=== PATIENT | female | born 1950 | race Two or more races ===

== ENCOUNTER 2017-09-29 11:55 | Emergency (ER) | payer MEDICARE ==
--- OUTSIDE RECORDS SUMMARY | 2017-09-29 12:15 | XMS REPORT ---
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 Active Onset: 12/19/2013 Sprain of knee and leg Aniket Miles M.D. Active Onset: 10/23/2012 Epistaxis Aniket Miles M.D. Active Onset: 08/18/2012 Benign essential hypertension Aniket Miles M.D. Active Onset: 10/11/2011 Epigastric pain Aniket Miles M.D. Active Family History Date Family Member(s) Problem(s) Comments Father due to Diabetes () Father due to NM () - age 63 Mother Hypertension Mother Hyperlipidemia Mother Osteoarthritis Social History Description No Information Available Allergies, Adverse Reactions, Alerts Date Description Reaction Status Severity Comments 01/27/2011 NKDA active Medications Medication Date Status Form Strength Qnty SIG Indications Ordering Provider Hydrochlorothiazi 08/18 Active Tablets 12.5mg 30tab take 1 Aniket giron /2013 s tablet by Ginger, mouth once M.D. daily Celebrex 07/02 Active Capsules 200mg 30cap 1 by mouth s every day DARELL Hudson Calcium + D Active Tablets 600-200mg 1 by mouth Unknown /0000 -Unit every day Amoxicillin 07/05 Hx Tablets 500mg 20tab 1 by mouth Aniket Lacy s twice a Ginger, - day M.D. 09/29 Prednisone 07/01 Hx Tablets 10mg 12tab 3 tabs by M54.31 s mouth Casa, - every day Afnp-C 07/07 x 2; tabs by mouth x 2, then 1 tab every day x 2 Physical Therapy 07/01 Hx treatment M54.31 and Casa, - evaluation Afnp-C 07/05 of sciatic pain Vitamin D-3 10/12 Hx Capsules 1000Unit 2 by mouth Aniket House every day Marjorie Miles.Merrick 07/01 Vagifem 04/09 Hx Tablets 10mcg 25tab insert tab Aniket House /2014 s twice Ginger, - weekly M.D. 07/05 Bactroban Nasal 12/10 Hx Ointment 2% apply to Aniket House /2013 the Ginger - affected M.D. 12/10 area bid for 5 days Meloxicam 12/10 Hx Tablets 15mg 30tab 1 po qd 844.9 Jaquan Ford, /2013 s M.D. - 02/11 Bactroban 10/23 Hx Ointment 2% 1Tube apply to Aniket House affected Ginger - area bid M.D. 12/10 Prevacid 10/12 Hx Capsules 30mg 30cap 1 po qd Aniket House Marjorie Bear M.D. 08/18 Protonix 10/10 Hx Packet 40mg 20uni 1 po qd Aniket House Marjorie Ponce M.D. 10/11 Aziza D 24H 12/17 Hx 10uni 1 po qd Aniket House /2008 Marjorie Ponce M.D. 07/29 Amoxicillin 12/17 Hx Capsules 500mg 14cap bid x 10 Aniket House s days Marjorie Miles M.D. 07/29 Aziza 12/18 Hx Tablets 180mg 30tab 1 PO qd Aniket House s Marjorie Miles M.D. 12/14 Calcium-Vitamin D 12/10 Hx Tablets 500-125 90tab [facility] Aziza D 24H 12/10 Hx 14uni 1 po qd Aniket House /2007 ts Marjorie Miles M.D. 12/14 Indocin 02/11 Hx 25mg 50uni 1 po tid Aniket House ts with Marjorie Baltazar M.D. 07/03 Naprosyn 05/17 Hx Tabs 500mg 20tab 1 bid with Aniket House s Marjorie Baltazar M.D. 07/03 Immunizations CPT Code Status Date Vaccine Lot # [id number] Given 01/10/2007 Tetanus And Diptheria Adult Preservative Free [id number] >7Yrs Vital Signs Date Vital Result Comment 09/29/2017 BP Systolic 120 mmHg BP Diastolic 60 mmHg Heart Rate 80 /min Body Temperature 98.2 F Respiratory Rate 16 /min Height 60.25 inches 5'0.25" Weight 153.00 lb BMI (Body Mass Index) 29.6 kg/m2 07/05/2017 BP Systolic 128 mmHg BP Diastolic 84 mmHg Heart Rate 77 /min Body Temperature 98.8 F Respiratory Rate 16 /min O2 % BldC Oximetry 96 % Height 60.25 inches 5'0.25" Weight 156.00 lb BMI (Body Mass Index) 30.2 kg/m2 07/01/2016 BP Systolic 136 mmHg BP Diastolic 82 mmHg Heart Rate 66 /min Body Temperature 98.4 F Respiratory Rate 16 /min Height 60.25 inches 5'0.25" Weight 155.25 lb BMI (Body Mass Index) 30.1 kg/m2 12/17/2015 BP Systolic 122 mmHg BP Diastolic 74 mmHg Heart Rate 64 /min Body Temperature 98.1 F Respiratory Rate 16 /min Height 60.25 inches 5'0.25" Weight 159.25 lb BMI (Body Mass Index) 30.8 kg/m2 10/13/2015 BP Systolic 126 mmHg BP Diastolic 80 mmHg Heart Rate 62 /min Body Temperature 98.1 F Respiratory Rate 18 /min Height 60.25 inches 5'0.25" Weight 157.00 lb BMI (Body Mass Index) 30.4 kg/m2 04/09/2015 BP Systolic 124 mmHg BP Diastolic 74 mmHg Heart Rate 66 /min Body Temperature 97.2 F Respiratory Rate 16 /min Height 60.25 inches 5'0.25" Weight 158.00 lb BMI (Body Mass Index) 30.6 kg/m2 12/19/2013 BP Systolic 124 mmHg BP Diastolic 80 mmHg Heart Rate 76 /min Body Temperature 98.2 F Respiratory Rate 18 /min Height 60.25 inches 5'0.25" Weight 162.00 lb BMI (Body Mass Index) 31.4 kg/m2 12/10/2013 BP Systolic 130 mmHg BP Diastolic 74 mmHg Heart Rate 72 /min Body Temperature 98.5 F Respiratory Rate 18 /min Height 60.25 inches 5'0.25" Weight 162.00 lb BMI (Body Mass Index) 31.4 kg/m2 10/23/2012 BP Systolic 128 mmHg BP Diastolic 88 mmHg Heart Rate 78 /min Body Temperature 98.3 F Height 60.25 inches 5'0.25" Weight 159.00 lb BMI (Body Mass Index) 30.8 kg/m2 09/08/2012 BP Systolic 110 mmHg BP Diastolic 62 mmHg Heart Rate 84 /min Body Temperature 97.6 F Height 60.25 inches 5'0.25" Weight 161.38 lb BMI (Body Mass Index) 31.3 kg/m2 08/18/2012 BP Systolic 120 mmHg BP Diastolic 82 mmHg Heart Rate 72 /min Body Temperature 98.8 F Respiratory Rate 16 /min Height 60.25 inches 5'0.25" Weight 156.00 lb BMI (Body Mass Index) 30.2 kg/m2 10/11/2011 BP Systolic 124 mmHg BP Diastolic 80 mmHg Heart Rate 72 /min Body Temperature 99.2 F Height 60.25 inches 5'0.25" Weight 154.00 lb BMI (Body Mass Index) 29.8 kg/m2 01/27/2011 BP Systolic 120 mmHg BP Diastolic 74 mmHg Heart Rate 80 /min Body Temperature 98.6 F Respiratory Rate 16 /min Height 60.25 inches 5'0.25" Weight 152.00 lb BMI (Body Mass Index) 29.4 kg/m2 07/29/2010 BP Systolic 140 mmHg BP Diastolic 80 mmHg Heart Rate 76 /min Body Temperature 97.5 F Respiratory Rate 20 /min Height 60.25 inches 5'0.25" Weight 152.00 lb BMI (Body Mass Index) 29.4 kg/m2 05/12/2009 Body Temperature 98.6 F 05/12/2009 BP Systolic 128 mmHg BP Diastolic 80 mmHg Heart Rate 78 /min Weight 153.00 lb 12/17/2008 BP Systolic 132 mmHg BP Diastolic 80 mmHg Heart Rate 68 /min Body Temperature 99.7 F Height 60.75 inches 5'0.75" Weight 153.00 lb BMI (Body Mass Index) 29.1 kg/m2 12/14/2008 BP Systolic 128 mmHg BP Diastolic 80 mmHg Heart Rate 68 /min Body Temperature 97.5 F Height 60.75 inches 5'0.75" Weight 153.00 lb BMI (Body Mass Index) 29.1 kg/m2 12/11/2007 BP Systolic 112 mmHg BP Diastolic 634 mmHg Heart Rate 64 /min Height 60.75 inches 5'0.75" Weight 146.00 lb BMI (Body Mass Index) 27.8 kg/m2 01/13/2007 BP Systolic 122 mmHg BP Diastolic 64 mmHg Heart Rate 78 /min Body Temperature 99.6 F Height 60.75 inches 5'0.75" Weight 140.00 lb BMI (Body Mass Index) 26.7 kg/m2 01/10/2007 BP Systolic 136 mmHg BP Diastolic 72 mmHg Heart Rate 72 /min Body Temperature 98.5 F Height 60.75 inches 5'0.75" Weight 140.00 lb BMI (Body Mass Index) 26.7 kg/m2 07/02/2005 BP Systolic 140 mmHg BP Diastolic 86 mmHg Heart Rate 72 /min Height 61 inches 5'1" Weight 150.00 lb BMI (Body Mass Index) 28.3 kg/m2 02/07/2004 BP Systolic 120 mmHg BP Diastolic 80 mmHg Heart Rate 84 /min Height 61 inches 5'1" Weight 140.00 lb BMI (Body Mass Index) 26.4 kg/m2 04/15/2003 BP Systolic 124 mmHg BP Diastolic 80 mmHg Heart Rate 60 /min Height 61 inches 5'1" Weight 151.00 lb BMI (Body Mass Index) 28.5 kg/m2 01/29/2003 BP Systolic 112 mmHg BP Diastolic 80 mmHg Height 61 inches 5'1" Weight 150.00 lb BMI (Body Mass Index) 28.3 kg/m2 06/08/2002 BP Systolic 140 mmHg BP Diastolic 80 mmHg Heart Rate 80 /min Body Temperature 97.6 F Height 61 inches 5'1" Weight 149.00 lb BMI (Body Mass Index) 28.2 kg/m2 10/03/2001 BP Systolic 120 mmHg BP Diastolic 74 mmHg Heart Rate 72 /min Body Temperature 97.8 F Height 61 inches 5'1" Weight 149.00 lb BMI (Body Mass Index) 28.2 kg/m2 03/27/2001 BP Systolic 126 mmHg BP Diastolic 76 mmHg Heart Rate 84 /min Height 61 inches 5'1" Weight 150.00 lb BMI (Body Mass Index) 28.3 kg/m2 03/23/2000 BP Systolic 140 mmHg BP Diastolic 78 mmHg Heart Rate 76 /min Height 61 inches 5'1" Weight 148.00 lb BMI (Body Mass Index) 28.0 kg/m2 12/03/1998 BP Systolic 122 mmHg BP Diastolic 70 mmHg Body Temperature 98.4 F Height 61 inches 5'1" Weight 144.50 lb 05/02/1998 BP Systolic 128 mmHg BP Diastolic 80 mmHg Heart Rate 72 /min Body Temperature 97.5 F Height 61 inches 5'1" Weight 142.00 lb 03/08/1997 BP Systolic 102 mmHg BP Diastolic 70 mmHg Body Temperature 100.0 F Weight 138.50 lb 138 lbs. 8 ozs. Up 2.5 LBS Results Test Date Test Result H/L Range Note Comprehensive Metabolic Prof 05/20/2017 Sodium 145 mEq/L 134-149 Potassium 4.4 mEq/L 3.6-5.5 Chloride 106 mEq/L 94-112 Carbon Dioxide 27 mEq/L 21-32 Glucose 110 mg/dL High 70-105 BUN 18 mg/dL 6-26 Creatinine 0.6 mg/dL 0.6-1.4 BUN/Creat Ratio 30.0 CALC 8.0-36.0 Calcium 9.6 mg/dL 8.6-10.2 Total Protein 6.7 g/dL 6.4-8.3 Albumin 4.3 g/dL 3.8-5.5 Globulin 2.4 g/dL 2.0-4.8 A/G Ratio 1.8 CALC 0.6-2.3 Alk. Phosphatase 74 U/L 30-110 Alt (SGPT) 12 U/L 7-35 Ast (Sgot) 14 U/L 5-34 Total Bilirubin 0.5 mg/dL 0.2-1.3 GFR Non- >60 ml/min/1.73m^ >=60 GFR >60 ml/min/1.73m^ >=60 Complete Blood Count 05/20/2017 WBC 5.9 x10^3/UL 3.6-9.6 RBC 5.02 x10^6/UL 3.90-5.70 HGB 13.8 g/dL 12.1-17.2 HCT 41 % 36-50 MCV 82.0 fL Low 82.2-97.4 MCH 27.4 pg Low 27.6-33.3 MCHC 33.5 g/dL 33.0-35.5 RDW 13.9 % High 11.6-13.7 PLT 204 x10^3/UL 150-400 MPV 9.0 fL 7.4-10.4 Gran # 3.9 x10^3/UL 1.5-7.2 Lymph# 1.8 x10^3/UL 0.7-4.9 Teller# 0.2 x10^3/UL 0.1-0.9 Gran % 64.3 % 42.2-75.2 Lymph % 32.1 % 20.5-51.1 Teller% 3.6 % 1.7-9.3 Laboratory test finding 05/20/2017 TSH 2.41 mIU/L 0.50-6.00 Lipid Profile 05/20/2017 Cholesterol 263 mg/dL High 120-200 Triglycerides 170 mg/dL 30-200 HDL Cholesterol 76 mg/dL 30-85 LDL (Calculated) 153 CALC High 0-129 VLDL Cholesterol 34 mg/dL 0-50 HDL Risk Factor 3.5 CALC 0.0-4.4 Ua - Micro (Fma) 07/01/2016 Appearance clear Color yellow Glucose, Urine (Fma/CMC/CTX) neg Bilirubin neg Ketones neg SP Grav <=1.005 Blood trace-lysed PH 5.5 Protein neg Urobil 0.2 Nitrite neg Leukocytes (Fma/CMC/Centrex) neg RBC 0-1 Epith rare /Lpf Lipid Profile 10/13/2015 Cholesterol 287 mg/dL High 120-200 Triglycerides 204 mg/dL High 30-200 HDL Cholesterol 73 mg/dL 30-85 LDL (Calculated) 173 CALC High 0-129 VLDL Cholesterol 41 mg/dL 0-50 HDL Risk Factor 3.9 CALC 0.0-4.4 Complete Blood Count 04/09/2015 WBC 5.2 x10^3/UL 3.6-9.6 RBC 5.00 x10^6/UL 3.90-5.70 HGB 13.9 g/dL 12.1-17.2 HCT 42 % 36-50 MCV 86.0 fL 82.2-97.4 MCH 27.7 pg 27.6-33.3 MCHC 33.2 g/dL 33.0-35.5 RDW 14.0 % High 11.6-13.7 PLT 174 x10^3/UL 150-400 MPV 7.8 fL 7.4-10.4 Gran # 2.9 x10^3/UL 1.5-7.2 Lymph# 3.4 x10^3/UL 0.7-4.9 Teller# 0.5 x10^3/UL 0.1-0.9 Gran % 48.0 % 42.2-75.2 Lymph % 45.1 % 20.5-51.1 Teller% 6.9 % 1.7-9.3 Ua - Non Micro (Fma) 04/09/2015 Appearance CLEAR Color YELLOW Glucose, Urine (Fma/CMC/CTX) NEG Bilirubin NEG Ketones NEG SP Grav 1.010 Blood NEG PH 5.5 Protein NEG Urobil 0.2 Nitrite NEG Leukocytes ([facility]) NEG Lipid Profile 04/09/2015 Cholesterol 287 mg/dL High 120-200 Triglycerides 112 mg/dL 30-200 HDL Cholesterol 81 mg/dL 30-85 LDL (Calculated) 184 CALC High 0-129 VLDL Cholesterol 22 mg/dL 0-50 HDL Risk Factor 3.5 CALC 0.0-4.4 Comprehensive Metabolic Prof 04/09/2015 Sodium 143 mEq/L 134-149 Potassium 4.4 mEq/L 3.6-5.5 Chloride 103 mEq/L 94-112 Carbon Dioxide 27 mEq/L 21-32 Glucose 123 mg/dL High 70-105 1 BUN 23 mg/dL 6-26 Creatinine 0.7 mg/dL 0.6-1.4 BUN/Creat Ratio 32.9 CALC 8.0-36.0 Calcium 9.7 mg/dL 8.6-10.2 Total Protein 7.2 g/dL 6.4-8.3 Albumin 4.4 g/dL 3.8-5.5 Globulin 2.8 g/dL 2.0-4.8 A/G Ratio 1.6 CALC 0.6-2.3 Alk. Phosphatase 68 U/L 30-110 Alt (SGPT) 14 U/L 7-35 Ast (Sgot) 18 U/L 5-34 Total Bilirubin 0.9 mg/dL 0.2-1.3 GFR Non- >60 ml/min/1.73m^ >=60 GFR >60 ml/min/1.73m^ >=60 Comprehensive Metabolic Prof 12/27/2013 Sodium 142 mEq/L 134-149 Potassium 4.4 mEq/L 3.6-5.5 Chloride 105 mEq/L 94-112 Carbon Dioxide 25 mEq/L 21-32 Glucose 115 mg/dL High 70-105 2 BUN 22 mg/dL 6-26 Creatinine 0.8 mg/dL 0.6-1.4 BUN/Creat Ratio 27.5 CALC 8.0-36.0 Calcium 9.6 mg/dL 8.6-10.2 Total Protein 7.3 g/dL 6.3-8.1 Albumin 4.3 g/dL 3.8-5.5 Globulin 3.0 g/dL 2.0-4.8 A/G Ratio 1.4 CALC 0.6-2.3 Alk. Phosphatase 74 U/L 30-110 Alt (SGPT) 18 U/L 7-35 Ast (Sgot) 15 U/L 5-34 Total Bilirubin 0.9 mg/dL 0.2-1.3 Lipid Profile 12/27/2013 Cholesterol 278 mg/dL High 120-200 3 Triglycerides 234 mg/dL High 30-200 HDL Cholesterol 68 mg/dL 30-85 LDL (Calculated) 163 CALC High 0-129 VLDL Cholesterol 47 mg/dL 0-50 HDL Risk Factor 4.2 CALC 0.0-4.4 Lipid Profile 08/18/2012 Cholesterol 242 mg/dL High 120-200 HDL 70 mg/dL 30-85 Triglycerides 127 mg/dL 30-200 HDL Risk Factor 3.4 CALC 0.0-4.4 LDL (Calculated) 146 CALC High 0-129 VLDL (Calculated) 25 mg/dL 0-50 Total Protein 24HR Urine 08/14/2012 Urine Random Total Protein 8 mg/dL Urine Total Protein/24HR 90 mg/24Hr 0-165 Basic Metabolic Panel 08/14/2012 Sodium 142 mmol/L 133-145 Potassium 4.4 mmol/L 3.5-5.0 Chloride 106 mmol/L 101-111 Co2 Carbon Dioxide 28.0 mmol/L 22-32 Anion Gap 8.0 mmol/L 2-11 Glucose 116 mg/dL High 70-100 Blood Urea Nitrogen 10 mg/dL 6-24 Creatinine 0.80 mg/dL 0.50-1.40 BUN/Creatinine Ratio 12.5 8-20 Calcium 9.9 mg/dL 8.1-9.9 Egfr Non- 73.2 >60 Egfr 94.1 >60 4 Creatinine Clearance 08/14/2012 Urine Random Creatinine 91.8 mg/dL Creatinine 0.8 mg/dL 0.5-1.4 Creatinine Clearance 90 mL/min 80-125 Urine Collection Time 24 Urine Total Volume 1125 mL Laboratory test finding 07/29/2011 PTT (Aptt) 28.0 25.15-38.53 Protime 07/29/2011 Inr 0.88 0.88-1.13 5 Protime 10.3 SEC 10.3-13.5 6 CBC Auto Diff 07/29/2011 White Blood Count 5.9 CUMM 4.8-10.8 Red Cell Count 5.18 CUMM 4.2-5.4 Hemoglobin 13.8 g/dL 12.0-16.0 Hematocrit 40 % 35-47 Mean Corpuscular Volume 78 um3 Low 79-97 Mean Corpuscular Hemoglob 27 pg 27-31 Mean Corpuscular HGB Cone 34 g/dL 32-36 Redcell Distribution WDTH 17 % High 10.5-15 Platelet Count 213 CUMM 150-450 Mean Platelet Volume 10.9 um3 High 7.4-10.4 Gran % 64.4 % 38-83 Lymph % 25.9 % 25-47 Mononuclear % 5.5 % 1-9 Eosinophil % 3.8 % 0-6 Basophil % 0.4 % 0-2 Abs Lymphs 1.5 1.0-4.8 Abs Mononuclear 0.3 0-0.8 Absolute Neutrophil Count 3.8 1.5-7.7 Abs Eosinophils 0.2 0-0.6 Abs Basophils 0 0-0.2 Laboratory test finding 07/30/2010 TSH 1.69 mIU/L 0.50-6.00 Comprehensive Metabolic Prof 07/30/2010 Albumin 4.5 g/dL 3.8-5.5 Alk. Phos. 77 U/L 30-110 Alt (SGPT) 12 U/L 7-35 Ast (Sgot) 16 U/L 5-34 BUN 22 mg/dL 6-26 Calcium 10.1 mg/dL 8.6-10.2 Chloride 105 mEq/L 94-112 Creatinine 0.7 mg/dL 0.6-1.4 Carbon Dioxide 28 mEq/L 21-32 Glucose 107 mg/dL High 70-105 7 Sodium 143 mEq/L 134-149 Total Bilirubin 1.1 mg/dL 0.2-1.3 Total Protein 6.9 g/dL 6.3-8.1 Potassium 4.8 mEq/L 3.6-5.5 Globulin 2.4 g/dL 2.0-4.8 A/G Ratio 1.9 Calc 0.6-2.2 BUN/Creat Ratio 29.9 Calc 8.0-36.0 Laboratory test finding 07/30/2010 Vitamin D, 25 Oh 27.4 ng/mL Low 32.0- 100.0 8 Lipid Profile 07/30/2010 Cholesterol 281 mg/dL High 120-200 9 HDL 77 mg/dL 30-85 Triglycerides 113 mg/dL 30-200 HDL Risk Factor 3.7 CALC Low 4.2-7.0 LDL (Calculated) 181 CALC High 0-129 VLDL (Calculated) 23 mg/dL 0-50 CBC (Fma) 07/30/2010 WBC 5.0 3.6-9.6 RBC 5.09 3.90-5.70 Hemoglobin (Fma/CMC/CTX) 14.4 g/dL 12.1 - 17.2 Hematocrit (Fma/CMC/CTX) 42.2 % 36.1 - 50.3 Platelets 179 10^3/ul 150-400 Lymph% 24.0 20.5-51.1 Mixed% 7.6 Neutrophils % 68.4 Mean Corpuscular Vol 83 82.2-97.4 Mean Corpuscular Hemoglobin 28.2 27.6-33.3 Mean Corpuscular Hemo Concen 34.0 32.0-36.0 RDW 12.2 11.6-13.7 Mean Platelet Volume 9.2 6.5-11.0 Ua - Non Micro (Fma) 07/29/2010 Appearance CLEAR Color YELLOW Glucose NEG Bilirubin NEG Ketones NEG SP Grav 1.010 Blood NEG PH 6.5 Protein NEG Urobil 0.2 Nitrite NEG Leukocytes (Fma/[facility]) NEG Laboratory test finding 12/14/2008 Quickstrep NEG Negative Throat - Beta Strep Fma negative Comprehensive Metabolic Prof 12/18/2007 Albumin 4.2 g/dL 3.8-5.5 10 Alk. Phos. 74 U/L 30-110 10 Alt (SGPT) 13 U/L 7-35 10 Ast (Sgot) 20 U/L 5-34 10 BUN 25 mg/dL 6-26 10 Calcium 9.3 mg/dL 8.6-10.2 10 Chloride 102 mEq/L 94-112 10 Creatinine 0.9 mg/dL 0.6-1.4 10 Carbon Dioxide 29 mEq/L 21-32 10 Glucose 96 mg/dL 70-105 10 Sodium 140 mEq/L 134-149 10 Total Bilirubin 0.7 mg/dL 0.2-1.3 10 Total Protein 6.8 g/dL 6.3-8.1 10 Potassium 4.0 mEq/L 3.6-5.5 10 Globulin 2.6 g/dL 2.0-4.8 10 A/G Ratio 1.6 Calc 0.6-2.2 10 BUN/Creat Ratio 29.1 Calc 8.0-36.0 10 Lipid Profile 12/18/2007 Cholesterol 253 mg/dL High 120-200 10 HDL 80 mg/dL 30-85 10 Triglycerides 91 mg/dL 30-200 10 HDL Risk Factor 3.2 CALC Low 4.2-7.0 10 LDL (Calculated) 155 CALC High 0-129 10 VLDL (Calculated) 18 mg/dL 0-50 10 Complete Blood Count 12/18/2007 WBC 5.2 x10^3/u 3.6-9.6 10 Gran# 3.5 x10^3/u 1.5-7.2 10 Gran% 68.0 % 42.2-75.2 10 HCT 42 % 36-50 10 HGB 13.9 g/dL 12.1-17.2 10 Lymph# 1.5 x10^3/u 0.7-4.9 10 Lymph% 28.9 % 20.5-51.1 10 MCH 27.9 pg 27.6-33.3 10 MCV 83.7 fL 82.2-97.4 10 MCHC 33.4 g/dL 33.0-35.5 10 Mo# 0.2 x10^3/u 0.1-0.9 10 Mo% 3.1 % 1.7-9.3 10 MPV 10.2 fL 7.4-10.4 10 PLT 190 x10^3/u 150-400 10 RBC 4.98 x10^6/u 3.90-5.70 10 RDW 13.0 % 11.6-13.7 10 Complete Blood Count 01/11/2007 WBC 7.3 x10\\S\\3/uL 3.6-9.6 10 Gran# 5.7 x10\\S\\3/uL 1.5-7.2 10 Gran% 77.9 % High 42.2-75.2 10 HCT 41 % 36-50 10 HGB 13.8 g/dL 12.1-17.2 10 Lymph# 1.4 x10\\S\\3/uL 0.7-4.9 10 Lymph% 18.7 % Low 20.5-51.1 10 MCH 28.8 pg 27.6-33.3 10 MCV 86.0 fL 82.2-97.4 10 MCHC 33.4 g/dL 33.0-35.5 10 Mo# 0.2 x10\\S\\3/uL 0.1-0.9 10 Mo% 3.4 % 1.7-9.3 10 MPV 9.7 fL 7.4-10.4 10 PLT 203 x10\\S\\3/uL 150-400 10 RBC 4.78 x10\\S\\6/uL 3.90-5.70 10 RDW 13.4 % 11.6-13.7 10 Comprehensive Metabolic Prof 01/11/2007 Albumin 4.0 g/dL 3.8-5.5 10 Alk. Phos. 104 U/L 30-110 10 Alt (SGPT) 12 U/L 7-35 10 Ast (Sgot) 18 U/L 5-34 10 BUN 15 mg/dL 6-26 10 Calcium 9.2 mg/dL 8.6-10.2 10 Chloride 106 mEq/L 94-112 10 Creatinine 0.9 mg/dL 0.6-1.4 10 Carbon Dioxide 31 mEq/L 21-32 10 Glucose 128 mg/dL High 70-105 10 Sodium 142 mEq/L 134-149 10 Total Bilirubin 1.0 mg/dL 0.2-1.3 10 Total Protein 6.9 g/dL 6.3-8.1 10 Potassium 4.0 mEq/L 3.6-5.5 10 Globulin 2.9 g/dL 2.0-4.8 10 A/G Ratio 1.4 Calc 0.6-2.2 10 BUN/Creat Ratio 17.9 Calc 8.0-36.0 10 Lipid Profile 01/11/2007 Cholesterol 290 mg/dL High 120-200 10 HDL 66 mg/dL 30-85 10 Triglycerides 105 mg/dL 30-200 10 HDL Risk Factor 4.4 CALC 4.2-7.0 10 LDL (Calculated) 203 CALC High 0-129 10 VLDL (Calculated) 21 mg/dL 0-50 10 Ua - Micro ([facility]) 01/10/2007 Appearance CLEAR Color LT YELLOW Glucose NEG Bilirubin NEG Ketones NEG SP Grav 1.010 Blood NEG PH 7.0 Protein NEG Urobil 0.2 Nitrite NEG Leukocytes (a/[facility]) TRACE Hyaline - /Lpf Granular - /Lpf WBC (a,[facility]) 3-5 RBC - Mucus - /Lpf Epith OCC /Lpf Bacteria TRACE /Hpf Amorphous - /Lpf Crystals, Fluid (a/[facility]/CTX) - Z#Comments - Laboratory test finding 09/28/2004 Comments CBC;ESR;BASIC;CRYSTAL; Hep2;Anti- CCP PT + PTT No Therpy/Unkn 06/11/2002 PTT 25.6 seconds 23.0 - 32.0 PT (No Therapy/Unknown) 10.1 seconds 9.5 - 12.3 Inr 0.9 11 Comp Metabolic (a) 06/11/2002 Albumin ([facility]) 4.7 3.8-5.5 Alkaline Phosphatase 83 U/L 36-117 Bilirubin, Total 0.7 mg/dL 0.2-1.3 BUN 13 7-26 Calcium 9.4 mg/dL 8.6-10.0 Creatinine 0.7 mg/dL 0.6-1.4 Glucose 112 mg/dL 70 - 118 Ast Sgot 17 U/L 5-40 Alt (SGPT) 13 10-40 Total Protein 7.4 g/dL 6.4-8.3 Sodium 145 134-149 Potassium 4.9 3.6-5.5 Chloride 104 mEq/L 94-112 Co2 30 21-32 Globulin 2.7 2.0-4.8 A/G Ratio (a/[facility]) 1.7 0.6-2.2 BUN/Creatinin Ratio 18.6 8.0-36 Lipid Profile ([facility]) 06/11/2002 Cholesterol 255 mg/dL High 140-200 Triglyceride 80 mg/dL 30-150 VLDL 16 0-50 LDL-Calculated 165 High 0-160 HDL-Chol 74 35-85 Laboratory test finding 06/11/2002 TSH 1.22 0.4-4.2 CBC Electronic ([facility]) 06/11/2002 WBC 6.0 3.6-9.6 Lymphocytes 27.1 % 20.5 - 51.1 Monocytes 4.9 % 1.7-9.3 Granulocytes 68.0 % 42.2 - 75.2 Lymphocytes 1.6 10^3/uL 0.7 - 4.9 Monocytes 0.3 10^3/uL 0.1 - 0.9 Granulocytes 4.1 10^3/uL 1.5 - 7.2 RBC 5.01 3.90-5.70 Hemoglobin 13.5 g/dL 12.1 - 17.2 Hematocrit 40.6 % 36.1 - 50.3 Mean Corpuscular Vol 81.1 Low 82.2-97.4 Mean Corpuscular Hemaglobin 27.0 Low 27.6-33.3 Mean Corpuscular Hemo Concen 33.3 33.0-34.8 RDW 13.6 11.6-13.7 Platelets 192 10^3/ul 150-400 Mean Platelet Volume 9.3 7.4-10.4 Lipid Profile ([facility]) 03/30/2001 Cholesterol 204 mg/dL High 140-200 Triglyceride 190 mg/dL High 30-150 VLDL 38 0-50 LDL-Calculated 101 0-160 HDL-Chol 65 35-85 Comp Metabolic ([facility]) 03/29/2000 Albumin 3.9 GM/DL 3.80 - 5.50 Alkaline Phosphatase 59 U/L 39-130 Bilirubin, Total 0.6 mg/dL 0.2-1.3 BUN 13 mg/dL 10-26 Calcium 8.3 mg/dL 7.4-9.2 Creatinine 0.7 mg/dL 0.6-1.4 Glucose 111 mg/dL 70 - 118 Ast Sgot 17 U/L 9-44 Alt (SGPT) 14 U/L 10-40 Total Protein 7.9 g/dL 6.3-8.1 Sodium 139 134-149 Potassium 5.2 mEq/L 3.6-5.5 Chloride 103 mEq/L 94-112 Co2 27 21-32 Globulin 4.0 2.0-4.8 Albumin / Globulin Ratio 1.0 0.6-2.2 BUN/Creatinin Ratio 18.6 8.0-36 Lipid Profile ([facility]) 03/29/2000 Cholesterol 242 mg/dL High 140-200 Triglyceride 115 mg/dL 30-150 HDL-Chol 61.4 mg/dL 30-70 VLDL 23 mg/dL 0-50 LDL-Calculated 158 0-160 CBC With Diff ([facility]) 03/29/2000 WBC 5.5 /Hpf 3.6 - 9.6 Lymphocytes 28.9 % 20.5 - 51.1 Monocytes 5.7 % 1.7 - 9.3 Granulocytes 65.4 % 42.2 - 75.2 Lymphocytes 1.6 10^3/uL 0.7 - 4.9 Monocytes 0.3 10^3/uL 0.1 - 0.9 Granulocytes 3.6 10^3/uL 1.5 - 7.2 RBC 4.42 /Hpf 3.90 - 5.70 Hemoglobin 11.4 g/dL Low 12.1 - 17.2 Hematocrit 34.4 % Low 36.1 - 50.3 Mean Corpuscular Vol 77.8 fl Low 82.2 - 97.4 Mean Corpuscular Hemaglobin 25.7 pg Low 27.6 - 33.3 Mean Corpuscular Hemo Concen 33.0 g/dL 33.0 - 34.8 RDW 15.5 % High 11.6 - 13.7 Platelets 164 10^3/ul 150-400 Mean Platelet Volume 11.0 fl High 7.4 - 10.4 Ua - Non Micro (a New) 03/23/2000 Appearance CLEAR YELLOW Glucose - Bilirubin - Ketones - SP Grav >=1.030 Blood LARGE PH 6.5 Protein - Urobil 1.0 Nitrite - Leukocytes - 1 NON-FASTING 2 RESULTS VERIFIED BY REPEAT ANALYSIS 3 RESULTS VERIFIED BY REPEAT ANALYSIS 4 Because ethnic data is not always readily available, this report includes an eGFR for both -Americans and non- Americans. The National Kidney Disease Education Program (NKDEP) does not endorse the use of the MDRD equation for patients that are not between the ages of 18 and 70, are , have extremes of body size, muscle mass, or nutritional status, or are non- or non-. According to the National Kidney Foundation, irrespective of diagnosis, the stage of the disease is based on the level of kidney function: Stage Description GFR(mL/min/1.73 m(2)) 1 Kidney damage with normal or decreased GFR 90 2 Kidney damage with mild decrease in GFR 60-89 3 Moderate decrease in GFR 30-59 4 Severe decrease in GFR 15-29 5 Kidney failure <15 (or dialysis) 5 Recommended INR for Patients on Oral Anticoagulants Prophylaxis 2.0 - 3.0 Treatment of thrombosis 2.0 - 3.0 Prevention of embolism 2.0 - 3.0 Prevention of embolism from prosthetic heart valves 2.5 - 3.5 6 DIAGNOSIS,TREATMENT,AND THERAPY MUST BE BASED ON THE INR VALUE ALONE. 7 RESULT YUE'Mauricio 8 Recent studies consider the lower limit of 32.0 ng/mL to be a threshold for optimal health. Caio BESS. J Nutr. 2004;135(2):317-22. 9 RESULT YUE'Mauricio 10 FASTING 11 INTERNATIONAL NORMALIZED RATIO(INR) INDICATIONS INR RANGE PATIENTS NOT ON ANTICOAGULANT THERAPY * DEEP VENOUS THROMBOSIS 2.0-3.0 PULMONARY EMBOLISM 2.0-3.0 ATRIAL FIBRILLATION 2.0-3.0 PROPHYLAXIS: 2.0-3.0 HIGH-RISK SURGERY TISSUE HEART VALVES ATRIAL FIBRILLATION ACUTE MYOCARDIAL INFARCTION VALVULAR HEART DISEASE MECHANICAL PROSTHETIC VALVE 2.5-3.5 * USE OF INR VALUES SHOULD BE LIMITED TO PATIENTS WHO ARE ON STABLE ORAL ANTICOAGULANT THERAPY. AN INR ABOVE 5.0-5.5 APPEARS TO BE ASSOCIATED WITH AN UNACCEPTABLY HIGH RISK OF BLEEDING. Procedures Date CPT Code Description Status 05/23/2017 Colonoscopy Completed 10/27/2016 Mammogram Completed 12/17/2015 57809 Remove Impact Cerumen Irrigati Completed 10/28/2015 Mammogram Completed 10/23/2014 Mammogram Completed 10/22/2013 Mammogram Completed 10/20/2012 Mammogram Completed 10/11/2011 37071 Electrocardiogram Complete Completed 10/04/2011 Mammogram Completed 01/27/2011 82265 Electrocardiogram Complete Completed 10/02/2010 Mammogram Completed 07/29/2010 98666 Electrocardiogram Complete Completed 09/10/2009 Mammogram Completed 09/09/2008 Mammogram Completed 09/07/2007 Mammogram Completed 04/24/2007 Colonoscopy Completed 01/10/2007 94677 Electrocardiogram Complete Completed 08/18/2006 Mammogram Completed 03/27/2001 48029 Electrocardiogram Complete Completed 03/23/2000 05122 Electrocardiogram Complete Completed Encounters Type Date Location Provider CPT E/M Dx Office Visit 07/05/2017 3:20p [facility] Aniket Miles 11408 J06.9 M.DEsa Office Visit 07/01/2016 10:45a [facility] Janeth Cormier [place] 12559 M54.31 Office Visit 10/13/2015 11:00a [facility] Aniket Miles 48478 M79.604 Juan Miguel I10 Office Visit 04/09/2015 9:20a [facility] Aniket Miles M.D. 52306 I10 M54.89 Office Visit 12/19/2013 2:10p [facility] Aniket Miles M.D. 31823 844.9 401.1 Office Visit 12/10/2013 10:40a [facility] Jaquan Ford M.D. 22488 844.9 Office Visit 10/23/2012 2:40p [facility] Aniket Miles M.D. 16419 784.7 Office Visit 09/08/2012 9:40a [facility] Aniket Miles M.D. 68228 401.1 Office Visit 08/18/2012 10:00a [facility] Aniket Miles M.D. 10763 401.1 Office Visit 10/11/2011 1:10p [facility] Aniket Miles M.D. 49505 789.06 Office Visit 01/27/2011 2:20p [facility] Aniket Miles M.D. 47877 V72.83 719.45 V72.83 366.10 Office Visit 07/29/2010 3:20p [facility] Aniket Miles M.D. 91505 V70.0 Office Visit 05/12/2009 2:00p [facility] Aniket Miles M.D. 32100 465.9 Office Visit 12/17/2008 10:00a [facility] Aniket Miles M.D. 00799 461.9 Office Visit 12/14/2008 11:00a [facility] Elaina HudsonRAYSHAWNP 16772 477.9 Office Visit 12/11/2007 1:40p [facility] Aniket Miles M.D. 92284 381.01 Office Visit 01/13/2007 9:10a [facility] Petros Katz M.D. 13095 729.1 780.6 780.79 Office Visit 01/10/2007 10:20a [facility] Aniket Miles M.D. 67689 791.7 719.45 V70.0 V06.5 Office Visit 02/07/2004 3:10p [facility] Aniket Miles M.D. 20622 724.5 Office Visit 04/15/2003 11:00a [facility] Aniket Miles M.D. 86307 719.45 Office Visit 01/29/2003 9:00a [facility] Aniket Miles M.D. 06264 726.5 Office Visit 06/08/2002 3:20p [facility] Aniket Miles M.D. 68300 V70.0 Office Visit 10/03/2001 3:10p [facility] Aniket Miles M.D. 41581 Office Visit 03/27/2001 1:40p [facility] Petros Katz M.D. 90100 Office Visit 03/23/2000 3:20p [facility] Aniket Miles M.D. 17928 Plan of Care 09/29/2017 - Alisha Grier, NPR10.13 Epigastric painComments:I am not certain what is causing your symptoms, but I recommend you be evaluated in the emergency deparment right now.R07.9 Chest pain, [id number] Dizziness and giddiness
[2017-09-29 12:59] LABS: ABS Basophils 0 10^3/ul (0-0.2); ABS Eosinophils 0.1 10^3/ul (0-0.6); ABS Lymphocytes 1.2 10^3/ul (1.0-4.8); ABS Monocytes 0.4 10^3/ul (0-0.8); ABS Neutrophils 2.4 10^3/ul (1.5-7.7); ABS Nucleated RBC 0 10^3/ul; Eosinophil % 2.3 % (0-6); Hematocrit 40 % (35-47); Hemoglobin 13.9 g/dl (12.0-16.0); Lymphocyte % 28.6 % (25-47); Mean Corpuscular HGB Conc 35 g/dl (31-36); Mean Corpuscular Hemoglobin 28 pg (27-31); Mean Corpuscular Volume 80 fL (80-97); Mean Platelet Volume 10.1 um3 (7.4-10.4); Nucleated Red Blood Cells % 0.1; Platelet Count 130 10^3/ul (150-450); Red Blood Count 5.03 10^6/ul (4.0-5.4); Red Cell Distribution Width 14 % (10.5-15); White Blood Count 4.1 10^3/ul (3.5-10.8)
--- NOTE | 2017-09-29 13:37 | RAD ---
HISTORY: Chest pain COMPARISONS: None VIEWS: 1: frontal portable view of the chest at 1:18 PM FINDINGS: LINES AND TUBES: None. CARDIOMEDIASTINAL SILHOUETTE: The cardiomediastinal silhouette is normal for portable technique. PLEURA: The costophrenic angles are sharp. No pleural abnormalities are noted. LUNG PARENCHYMA: There is minimal linear opacification of left lung base. ABDOMEN: The upper abdomen is clear. There is no subphrenic gas. BONES AND SOFT TISSUES: Degenerative changes are noted of the spine and shoulders. IMPRESSION: MINIMAL LINEAR ATELECTASIS VERSUS PLEUROPARENCHYMAL SCARRING OF THE LEFT LUNG BASE.
[2017-09-29 16:05] LABS: Urine Appearance Clear; Urine Blood Negative (Negative); Urine Color Yellow; Urine Ketones Trace (Negative); Urine Protein Negative (Negative); Urine Specific Gravity 1.017 (1.010-1.030); Urine Urobilinogen Negative (Negative)
[2017-09-29 17:32] VITALS: BP 101/63
--- NOTE | 2017-09-29 18:04 | ED ---
Lara Barba Julia, scribed for Lori Pace MD on 09/29/17 at 1233 . Shortness of Breath - HPI Summary HPI Summary: This patient is a 67 year old F presenting to [facility] with a chief complaint of SOB, chest heaviness, and lightheadedness since 09/23/17. Patient reports sudden chest pain radiating into back, with sneezing, rhinorrhea, and body aches for the past 4-5 days. The patient rates the pain 3/10 in severity. Patient denies previous similar symptoms. Pt denies dysuria, cough, fever, chills, headache, vision changes, ear ache, sore throat, abdominal pain, and edema. Lightheadedness is alleviated by eating. Pt was sent here by her PCP. Pt was given three baby [employer]. Pt has one sick contact at home. Active medications reviewed with patient. - History of Current Complaint Chief Complaint: EDDizziness Time Seen by Provider: 09/29/17 12:09 Hx Obtained From: Patient Onset/Duration: Sudden Onset, Lasting Weeks Timing: Constant Associated Signs & Symptoms: Cough (Nonproductive), Nasal Congestion - Allergy/Home Medications Allergies/Adverse Reactions: Allergies Allergy/AdvReac Type Severity Reaction Status Date / Time No Known Allergies Allergy Verified 07/12/16 10:17 Home Medications: Home Medications Calcium Carbonate/Vitamin D3 [Calcium 500 + Vit D Caplet] 1 cap PO DAILY [History Confirmed 09/29/17] PMH/Surg Hx/FS Hx/Imm Hx Endocrine/Hematology History: Denies: Hx Diabetes Cardiovascular History: Reports: Hx Hypertension Denies: Hx Pacemaker/ICD History: Denies: Hx Renal Disease Musculoskeletal History: Reports: Hx Osteoporosis Denies: Hx Rheumatoid Arthritis Sensory History: Denies: Hx Hearing Aid Psychiatric History: Denies: Hx Panic Disorder - Cancer History Hx Chemotherapy: No Hx Radiation Therapy: No - Surgical History Surgery Procedure, Year, and Place: BILATERAL HIP REPLACEMENTS 2010. 2 C SECTIONS. TONSILS Infectious Disease History: No Infectious Disease History: Denies: Traveled Outside the [place] in Last 30 Days - Family History Known Family History: Positive: Cardiac Disease, Diabetes - Social History Alcohol Use: None Substance Use Type: Reports: None Smoking Status (MU): Never Smoked Tobacco Review of Systems Negative: Fever, Chills Negative: Blurred Vision Positive: Nasal Discharge. Negative: Sore Throat, Ear Ache Positive: Chest Pain - "tightness" Positive: Shortness Of Breath, Other - chest congestion. Negative: Cough Positive: Abdominal Pain Positive: no symptoms reported Positive: Myalgia - back pain. Negative: Edema Negative: Rash Neurological: Other - lightheaded Negative: Headache All Other Systems Reviewed And Are Negative: No Physical Exam - Summary Physical Exam Summary: Appearance: Alert, conversing, nontoxic appearing Skin: Warm, dry, no mottling, no rashes, no contusions HEENT: EOMI, PERRL, dry mucous membranes Neck: No masses on the neck, supple Respiratory: Clear to auscultation, breath sounds present, no rales, no rhonchi , no wheezes Cardiovascular: RRR, pulses are symmetrical in both lower and upper extremities Abdomen: Soft, non-tender Bowel Sounds: Present Musculoskeletal: No CVA tenderness, no obvious deformity, moving all extremities in a grossly normal manner Neurological: A&Ox3, CN II-XII Intact, moving all extremities symmetrically Psychiatric: Normal affect and mood Triage Information Reviewed: Yes Vital Signs On Initial Exam: Initial Vitals Temp Pulse Resp BP Pulse Ox 97.8 F 79 20 119/82 97 09/29/17 11:57 09/29/17 11:57 09/29/17 11:57 09/29/17 11:57 09/29/17 11:57 Vital Signs Reviewed: Yes Diagnostics - Vital Signs Vital Signs Temp Pulse Resp BP Pulse Ox 09/29/17 12:13 72 97 09/29/17 12:11 128/66 09/29/17 11:57 97.8 F 79 20 119/82 97 - Laboratory Lab Results: Lab Results 09/29/17 09/29/17 09/29/17 Range/Units 12:35 12:35 14:30 WBC 4.1 (3.5-10.8) 10^3/ul RBC 5.03 (4.0-5.4) 10^6/ul Hgb 13.9 (12.0-16.0) g/dl Hct 40 (35-47) % MCV 80 (80-97) fL MCH 28 (27-31) pg MCHC 35 (31-36) g/dl RDW 14 (10.5-15) % Plt Count 130 L (150-450) 10^3/ul MPV 10.1 (7.4-10.4) um3 Neut % (Auto) 57.8 (38-83) % Lymph % (Auto) 28.6 (25-47) % Young % (Auto) 10.9 H (0-7) % Eos % (Auto) 2.3 (0-6) % Baso % (Auto) 0.4 (0-2) % Absolute Neuts (auto) 2.4 (1.5-7.7) 10^3/ul Absolute Lymphs (auto) 1.2 (1.0-4.8) 10^3/ul Absolute Monos (auto) 0.4 (0-0.8) 10^3/ul Absolute Eos (auto) 0.1 (0-0.6) 10^3/ul Absolute Basos (auto) 0 (0-0.2) 10^3/ul Absolute Nucleated RBC 0 10^3/ul Nucleated RBC % 0.1 Sodium 140 (139-145) mmol/L Potassium 3.6 (3.5-5.0) mmol/L Chloride 102 (101-111) mmol/L Carbon Dioxide 28 (22-32) mmol/L Anion Gap 10 (2-11) mmol/L BUN 22 (6-24) mg/dL Creatinine 0.70 (0.51-0.95) mg/dL Est GFR ( Amer) 108.0 (>60) Est GFR (Non-Af Amer) 84.0 (>60) BUN/Creatinine Ratio 31.4 H (8-20) Glucose 89 (70-100) mg/dL Calcium 9.1 (8.6-10.3) mg/dL Magnesium 1.9 (1.9-2.7) mg/dL Total Bilirubin 0.60 (0.2-1.0) mg/dL AST 18 (13-39) U/L ALT 11 (7-52) U/L Alkaline Phosphatase 71 (34-104) U/L Troponin I 0.01 (<0.04) ng/mL Total Protein 6.9 (6.4-8.9) g/dL Albumin 4.0 (3.2-5.2) g/dL Globulin 2.9 (2-4) g/dL Albumin/Globulin Ratio 1.4 (1-3) TSH 2.51 (0.34-5.60) mcIU/mL Urine Color Yellow Urine Appearance Clear Urine pH 6.0 (5-9) Ur Specific [place] 1.017 (1.010-1.030) Urine Protein Negative (Negative) Urine Ketones Trace A (Negative) Urine Blood Negative (Negative) Urine Nitrate Negative (Negative) Urine Bilirubin Negative (Negative) Urine Urobilinogen Negative (Negative) Ur Leukocyte Esterase Negative (Negative) Urine Glucose Negative (Negative) 09/29/17 Range/Units 16:43 WBC (3.5-10.8) 10^3/ul RBC (4.0-5.4) 10^6/ul Hgb (12.0-16.0) g/dl Hct (35-47) % MCV (80-97) fL MCH (27-31) pg MCHC (31-36) g/dl RDW (10.5-15) % Plt Count (150-450) 10^3/ul MPV (7.4-10.4) um3 Neut % (Auto) (38-83) % Lymph % (Auto) (25-47) % Young % (Auto) (0-7) % Eos % (Auto) (0-6) % Baso % (Auto) (0-2) % Absolute Neuts (auto) (1.5-7.7) 10^3/ul Absolute Lymphs (auto) (1.0-4.8) 10^3/ul Absolute Monos (auto) (0-0.8) 10^3/ul Absolute Eos (auto) (0-0.6) 10^3/ul Absolute Basos (auto) (0-0.2) 10^3/ul Absolute Nucleated RBC 10^3/ul Nucleated RBC % Sodium (139-145) mmol/L Potassium (3.5-5.0) mmol/L Chloride (101-111) mmol/L Carbon Dioxide (22-32) mmol/L Anion Gap (2-11) mmol/L BUN (6-24) mg/dL Creatinine (0.51-0.95) mg/dL Est GFR ( Amer) (>60) Est GFR (Non-Af Amer) (>60) BUN/Creatinine Ratio (8-20) Glucose (70-100) mg/dL Calcium (8.6-10.3) mg/dL Magnesium (1.9-2.7) mg/dL Total Bilirubin (0.2-1.0) mg/dL AST (13-39) U/L ALT (7-52) U/L Alkaline Phosphatase (34-104) U/L Troponin I 0.01 (<0.04) ng/mL Total Protein (6.4-8.9) g/dL Albumin (3.2-5.2) g/dL Globulin (2-4) g/dL Albumin/Globulin Ratio (1-3) TSH (0.34-5.60) mcIU/mL Urine Color Urine Appearance Urine pH (5-9) Ur Specific [place] (1.010-1.030) Urine Protein (Negative) Urine Ketones (Negative) Urine Blood (Negative) Urine Nitrate (Negative) Urine Bilirubin (Negative) Urine Urobilinogen (Negative) Ur Leukocyte Esterase (Negative) Urine Glucose (Negative) Result Diagrams: 09/29/17 12:35 09/29/17 12:35 Lab Statement: Any lab studies that have been ordered have been reviewed, and results considered in the medical decision making process. - Radiology CXR Radiology Interpretation Completed By: Radiologist - MINIMAL LINEAR ATELECTASIS VERSUS PLEUROPARENCHYMAL SCARRING OF THE LEFT LUNG BASE. ED Physician has reviewed this report. - EKG 1237 Cardiac Rate: NL - at 70 BPM EKG Rhythm: Sinus Rhythm EKG Interpretation: nml QRS, nml QTc, nml STT waves Re-Evaluation - Re-Evaluation 1 Re-Evaluation Time: 14:30 Comment: Informed pt of results. Clarified that pt has not had previous chest heaviness that radiates to her back. Recommened admission. Explained need for multiple troponin readings. We agreed to repeat a troponin in four hours. 2 Re-Evaluation Time: 17:35 Change: Improved - Pt no longer has chest pain or dizziness. Informed pt of results. Pt insructed to follow up with PCP. Course/Dx - Course Course Of Treatment: Pt presents with SOB, chest heaviness, and lightheadedness since 09/23/17. She reports chest pain that radiates to the back. A CXR and EKG are negative. First Troponin is zero. Recommend to pt that she be admitted. Pt does not want to be admitted. Discussed risks and benefits of admission vs. leaving. We agreed to repeat another troponin in four hours. Pt's chest pain and dizziness improved while in ED. Second troponin is negative. All lab results are WNL. Instructed pt that she must follow up with her PCP on 10/02/17. - Diagnoses Provider Diagnoses: Chest pain Discharge - Sign-Out/Discharge Documenting (check all that apply): Discharge - Discharge Plan Condition: Stable Disposition: HOME Patient Education Materials: Chest Pain (ED) Referrals: Aniket Miles MD [Primary Care Provider] - Additional Instructions: Please follow up with your primary care physician on Tuesday. Return if worse or any new symptoms. Take all medications as previously instructed. - Billing Disposition and Condition Condition: STABLE Disposition: HOME The documentation as recorded by the Lara willis Julia accurately reflects the service I personally performed and the decisions made by , Lori Pace MD.
== END 2017-09-29 17:53 | disposition home or self-care (01) ==
LOC: ED 11:55
DX: R07.9 Chest pain, unspecified (principal); R05 Cough; R09.81 Nasal congestion; R06.02 Shortness of breath; M54.9 Dorsalgia, unspecified
CPT/HCPCS: 36415; 71045; 80053; 81003; 83735; 84443; 84484; 85025; 93005; 99283

== ENCOUNTER 2020-06-12 09:03 | Inpatient (IN) ==
[2020-06-12] MEDS ORDERED: methylPREDNISolone 125 mg 2 ML VIAL IV ONE (09:22)
[2020-06-12] MEDS ORDERED: HYDROmorphone 1 MG/1 ML SYRINGE IV PRN (13:36)
[2020-06-12] MEDS ORDERED: oxyCODONE/Acetamin 5/325 mg TAB PO PRN ×2 (13:36)
[2020-06-12 15:42] LABS: ABS Lymphocytes 0.5 10^3/ul (1.0-4.8); ABS Monocytes 0.2 10^3/ul (0-0.8); ABS Neutrophils 13.6 10^3/ul (1.5-7.7); Hematocrit 42 % (35-47); Hemoglobin 13.9 g/dL (12.0-16.0); Lymphocyte % 3.5 %; Mean Corpuscular HGB Conc 33 g/dL (31-36); Mean Corpuscular Hemoglobin 27 pg (27-31); Mean Corpuscular Volume 82 fL (80-97); Mean Platelet Volume 10.1 fL (7.4-10.4); Platelet Count 145 10^3/uL (150-450); Red Blood Count 5.15 10^6 /uL (3.70-4.87); Red Cell Distribution Width 14 % (10-15); White Blood Count 14.3 10^3/uL (3.5-10.8)
[2020-06-12 16:09] LABS: BUN/Creatinine Ratio 28.2 (8-20); Calcium 9.3 mg/dL (8.6-10.3); EGFR African American 88.9 (>60); EGFR Non-African American 73.4 (>60); Potassium 3.7 mmol/L (3.5-5.0)
[2020-06-12 16:28] LABS: C Reactive Protein 213.79 mg/L (<8.01)
[2020-06-12] MEDS: oxyCODONE/Acetamin 5/325 mg TAB PO PRN (18:01)
[2020-06-13] MEDS ORDERED: ZOSYN 3.375 GM x ONE DOSE over 30 miuntes IV (04:45)
[2020-06-13] MEDS ORDERED: cefTRIAXone 1 gm/50 mL NS BAG 1 GM/50 ML BAG IVPB SCH (05:00)
[2020-06-13 06:31] LABS: ABS Lymphocytes 0.4 10^3/ul (1.0-4.8); ABS Monocytes 0.3 10^3/ul (0-0.8); ABS Neutrophils 12.2 10^3/ul (1.5-7.7); Hematocrit 41 % (35-47); Hemoglobin 13.9 g/dL (12.0-16.0); Lymphocyte % 3.3 %; Mean Corpuscular HGB Conc 34 g/dL (31-36); Mean Corpuscular Hemoglobin 28 pg (27-31); Mean Corpuscular Volume 82 fL (80-97); Mean Platelet Volume 9.9 fL (7.4-10.4); Platelet Count 133 10^3/uL (150-450); Red Blood Count 5.06 10^6 /uL (3.70-4.87); Red Cell Distribution Width 14 % (10-15)
[2020-06-13] MEDS: oxyCODONE/Acetamin 5/325 mg TAB PO PRN (10:27)
[2020-06-13] MEDS ORDERED: Lactated Ringers 1000 ml BAG 1,000 ML IV ONE (12:18)
[2020-06-13] MEDS: Heparin 5000 UNITS/ML 1 mL VIAL SUBCUT SCH ×2 (12:28→21:18)
[2020-06-13] MEDS ORDERED: cefTRIAXone 1 gm/50 mL NS BAG 1 GM/50 ML BAG IVPB ONE (15:40)
[2020-06-13 16:14] LABS: Urine Appearance Cloudy; Urine Bilirubin Negative (Negative); Urine Blood 1+ (Negative); Urine Color Yellow; Urine Glucose Negative (Negative); Urine Ketones Negative (Negative); Urine Nitrite Negative (Negative); Urine Protein 1+(30 mg/dL) (Negative); Urine Specific Gravity 1.032 (1.010-1.030); Urine Urobilinogen Negative (Negative)
[2020-06-13 16:32] LABS: Urine Bacteria Absent (Absent); Urine Red Blood Cell Absent (Absent); Urine Squamous Epithelial Cell Present (Absent); Urine White Blood Cell 3+(>20/hpf) (Absent)
[2020-06-13] MEDS ORDERED: diPHENhydraMINE 25 mg TAB PO PRN (17:04)
[2020-06-14] MEDS: oxyCODONE/Acetamin 5/325 mg TAB PO PRN ×2 (00:51→18:08)
[2020-06-14] MEDS ORDERED: NS 0.9% 1000 ml BAG 1,000 ML IV SCH (01:15)
[2020-06-14] MEDS: Heparin 5000 UNITS/ML 1 mL VIAL SUBCUT SCH ×3 (04:49→21:01)
[2020-06-14] MEDS ORDERED: NS 0.9% 1000 ml BAG 1,000 ML IV ONE (05:07)
[2020-06-14 06:25] LABS: ABS Lymphocytes 0.7 10^3/ul (1.0-4.8); ABS Monocytes 0.7 10^3/ul (0-0.8); ABS Neutrophils 6.1 10^3/ul (1.5-7.7); Eosinophil % 0.4 %; Hematocrit 35 % (35-47); Hemoglobin 11.8 g/dL (12.0-16.0); Mean Corpuscular HGB Conc 34 g/dL (31-36); Mean Corpuscular Hemoglobin 27 pg (27-31); Mean Corpuscular Volume 81 fL (80-97); Mean Platelet Volume 10.5 fL (7.4-10.4); Platelet Count 121 10^3/uL (150-450); Red Blood Count 4.33 10^6 /uL (3.70-4.87); Red Cell Distribution Width 14 % (10-15); White Blood Count 7.6 10^3/uL (3.5-10.8)
[2020-06-14 06:39] LABS: BUN/Creatinine Ratio 38.8 (8-20); C Reactive Protein 177.97 mg/L (<8.01); Calcium 8.5 mg/dL (8.6-10.3); EGFR African American 105.9 (>60); EGFR Non-African American 87.5 (>60); Potassium 3.9 mmol/L (3.5-5.0)
[2020-06-14] MEDS: Lactated Ringers 1000 ml BAG 1,000 ML IV SCH (10:29)
[2020-06-14] MEDS: cefTRIAXone 2 GM ADDV.VIAL 2 GM in NS 0.9% 100 ml BAG 100 ML IV SCH (15:53)
[2020-06-14] MEDS: Ondansetron ODT 4 mg TAB 4 MG TAB SL PRN (18:08)
[2020-06-15] MEDS: oxyCODONE/Acetamin 5/325 mg TAB PO PRN ×3 (02:40→20:59)
[2020-06-15] MEDS: Lactated Ringers 1000 ml BAG 1,000 ML IV SCH (02:41)
[2020-06-15] MEDS: Heparin 5000 UNITS/ML 1 mL VIAL SUBCUT SCH ×3 (05:34→21:01)
[2020-06-15] MEDS ORDERED: Polyethylene Glycol 3350 17 GM PACKET PO PRN (05:40)
[2020-06-15] MEDS ORDERED: Magnesium Hydroxide LIQ 30 ML UDC PO PRN (05:40)
[2020-06-15] MEDS ORDERED: Senna TAB 8.6 mg TAB PO PRN (05:40)
[2020-06-15] MEDS: cefTRIAXone 2 GM ADDV.VIAL 2 GM in NS 0.9% 100 ml BAG 100 ML IV SCH (16:17)
[2020-06-16] MEDS: Heparin 5000 UNITS/ML 1 mL VIAL SUBCUT SCH (05:28)
[2020-06-16] MEDS: oxyCODONE/Acetamin 5/325 mg TAB PO PRN ×2 (09:32→21:34)
[2020-06-16] MEDS ORDERED: fentaNYL 100 mcg/2 ml 50 MCG/ML VIAL ONE (12:47)
[2020-06-16] MEDS ORDERED: Flumazenil 0.5 mg/5 ml 0.1 MG/ML 5 ml VIAL ONE (12:47)
[2020-06-16] MEDS ORDERED: Midazolam 5 mg/5 ml VIAL 1 mg/ml 5 ml VIAL (5 mg) ONE (12:47)
[2020-06-16] MEDS ORDERED: Naloxone 0.4 mg VIAL 0.4 mg/ml 1 ml VIAL ONE (12:47)
[2020-06-16] MEDS: Enoxaparin 40 MG/0.4 ML SYR SUBCUT SCH (18:03)
[2020-06-16] MEDS: cefTRIAXone 2 GM ADDV.VIAL 2 GM in NS 0.9% 100 ml BAG 100 ML IV SCH (18:04)
[2020-06-16] MEDS ORDERED: Gadoteridol (CONTRAST) 279.3 MG/ML 10 ML IV ONE (20:06)
[2020-06-17 06:18] LABS: ABS Eosinophils 0.3 10^3/ul (0-0.6); ABS Lymphocytes 1.8 10^3/ul (1.0-4.8); ABS Monocytes 0.9 10^3/ul (0-0.8); ABS Neutrophils 5.7 10^3/ul (1.5-7.7); Eosinophil % 3.7 %; Hematocrit 34 % (35-47); Hemoglobin 11.5 g/dL (12.0-16.0); Lymphocyte % 20.3 %; Mean Corpuscular HGB Conc 34 g/dL (31-36); Mean Corpuscular Hemoglobin 27 pg (27-31); Mean Corpuscular Volume 81 fL (80-97); Mean Platelet Volume 9.3 fL (7.4-10.4); Nucleated Red Blood Cells % 0.1; Platelet Count 184 10^3/uL (150-450); Red Blood Count 4.21 10^6 /uL (3.70-4.87); Red Cell Distribution Width 14 % (10-15); White Blood Count 8.8 10^3/uL (3.5-10.8)
[2020-06-17 06:36] LABS: Albumin 2.9 g/dL (3.2-5.2); BUN/Creatinine Ratio 25.4 (8-20); C Reactive Protein 188.11 mg/L (<8.01); Calcium 8.9 mg/dL (8.6-10.3); EGFR African American 113.7 (>60); Potassium 4.4 mmol/L (3.5-5.0); Total Bilirubin 0.4 mg/dL (0.2-1.0); Total Protein 5.9 g/dL (6.4-8.9)
[2020-06-17] MEDS: oxyCODONE/Acetamin 5/325 mg TAB PO PRN ×2 (08:27→20:18)
[2020-06-17] MEDS: Enoxaparin 40 MG/0.4 ML SYR SUBCUT SCH (14:01)
[2020-06-17] MEDS: cefTRIAXone 2 GM ADDV.VIAL 2 GM in NS 0.9% 100 ml BAG 100 ML IV SCH (15:56)
[2020-06-18] MEDS: Ondansetron ODT 4 mg TAB 4 MG TAB SL PRN (06:27)
[2020-06-18] MEDS: oxyCODONE/Acetamin 5/325 mg TAB PO PRN (08:46)
[2020-06-18] MEDS: Enoxaparin 40 MG/0.4 ML SYR SUBCUT SCH (13:18)
[2020-06-18] MEDS: cefTRIAXone 2 GM ADDV.VIAL 2 GM in NS 0.9% 100 ml BAG 100 ML IV SCH (16:14)
[2020-06-19] MEDS: Enoxaparin 30 MG/0.3 ML SYR SUBCUT SCH ×2 (00:43→13:28)
[2020-06-19] MEDS ORDERED: Enoxaparin 40 MG/0.4 ML SYR SUBCUT SCH (01:00)
[2020-06-19] MEDS: oxyCODONE/Acetamin 5/325 mg TAB PO PRN (01:08)
[2020-06-19 06:21] LABS: Hematocrit 36 % (35-47); Mean Corpuscular HGB Conc 34 g/dL (31-36); Mean Corpuscular Hemoglobin 27 pg (27-31); Mean Corpuscular Volume 81 fL (80-97); Mean Platelet Volume 8.6 fL (7.4-10.4); Platelet Count 277 10^3/uL (150-450); Red Cell Distribution Width 14 % (10-15); White Blood Count 9.2 10^3/uL (3.5-10.8)
[2020-06-19 06:35] LABS: BUN/Creatinine Ratio 18.3 (8-20); C Reactive Protein 94.12 mg/L (<8.01); Calcium 9.1 mg/dL (8.6-10.3); EGFR African American 83.9 (>60); EGFR Non-African American 69.3 (>60); Potassium 4.6 mmol/L (3.5-5.0)
[2020-06-19 08:41] LABS: ABS Eosinophils 0.2 10^3/ul (0-0.6); ABS Monocytes 0.7 10^3/ul (0-0.8); ABS Neutrophils 6.4 10^3/ul (1.5-7.7); Eosinophil % 2.3 %; Lymphocyte % 21.8 %
[2020-06-19] MEDS: cefTRIAXone 2 GM ADDV.VIAL 2 GM in NS 0.9% 100 ml BAG 100 ML IV SCH (17:36)
[2020-06-20] MEDS: Enoxaparin 30 MG/0.3 ML SYR SUBCUT SCH ×3 (04:36→14:27)
[2020-06-20] MEDS: cefTRIAXone 2 GM ADDV.VIAL 2 GM in NS 0.9% 100 ml BAG 100 ML IV SCH (15:27)
[2020-06-20 15:43] VITALS: BP 112/77
== END 2020-06-20 16:00 | disposition home or self-care (01) | DRG 539 ==
LOC: MED 09:03 → ED 09:03 → MED 16:19 → MEDTELE 06-13 05:06 → MED 06-13 05:14
PROVIDERS: ADMIT Hospitalist; ATTEND Internal Medicine